=== PATIENT | female | born 1945 | race Caucasian/White ===

== ENCOUNTER 2016-11-08 09:30 | Outpatient (CLI) | payer MEDICARE, OTHER | END 2016-11-08 09:31 | disposition home or self-care (01) | DX: G47.33 Obstructive sleep apnea (adult) (pediatric) (principal) | CPT/HCPCS: 99214; G0463 ==

== ENCOUNTER 2016-11-12 10:15 | Outpatient (CLI) | payer MEDICARE, OTHER | END 2016-11-12 10:16 | disposition home or self-care (01) | DX: I10 Essential (primary) hypertension (principal); G25.81 Restless legs syndrome; R73.01 Impaired fasting glucose; Z78.9 Other specified health status; M25.50 Pain in unspecified joint ==

== ENCOUNTER 2016-11-15 11:13 | Outpatient (CLI) | payer MEDICARE, OTHER | END 2016-11-15 11:14 | disposition home or self-care (01) | DX: Z12.31 Encounter for screening mammogram for malignant neoplasm of breast (principal) ==

== ENCOUNTER 2016-11-26 10:55 | Outpatient (CLI) | payer MEDICARE, OTHER | END 2016-11-26 10:56 | disposition home or self-care (01) | DX: Z12.2 Encounter for screening for malignant neoplasm of respiratory organs (principal); Z87.891 Personal history of nicotine dependence; J43.9 Emphysema, unspecified; J84.10 Pulmonary fibrosis, unspecified ==

== ENCOUNTER 2016-12-17 10:32 | Outpatient (CLI) | payer MEDICARE, OTHER | END 2016-12-17 10:33 | disposition home or self-care (01) | DX: G47.33 Obstructive sleep apnea (adult) (pediatric) (principal) | CPT/HCPCS: 99214; G0463 ==

== ENCOUNTER 2017-02-18 09:30 | Outpatient (CLI) | payer MEDICARE, OTHER | END 2017-02-18 09:31 | disposition home or self-care (01) | DX: G47.33 Obstructive sleep apnea (adult) (pediatric) (principal) | CPT/HCPCS: 99214; G0463 ==

== ENCOUNTER 2017-04-22 10:06 | Outpatient (CLI) | payer MEDICARE, OTHER | END 2017-04-22 10:07 | disposition home or self-care (01) | LOC: SC 10:06 | PROVIDERS: ATTEND Nurse Practitioner Family | DX: G47.33 Obstructive sleep apnea (adult) (pediatric) (principal) | CPT/HCPCS: 99214; G0463; 99212 ==

== ENCOUNTER 2017-12-31 10:21 | Outpatient (CLI) | payer MEDICARE, OTHER ==
--- NOTE | 2018-01-01 14:26 | Mammography Report ---
DIGITAL SCREENING MAMMOGRAM: 12/31/2017 CLINICAL INDICATION: A 72-year-old, for screening. COMPARISON: 10/2016, 09/2015, 04/2014, 12/2012, 11/2011. TECHNIQUE: Routine CC and MLO projections as well as bilateral laterally-exaggerated craniocaudal views were obtained of the breasts. FINDINGS: Parenchymal tissue within the breasts is predominantly fatty replaced. There are no dominant masses, suspicious microcalcifications, or secondary signs of malignancy. In comparison to the previous studies, there are no significant changes. IMPRESSION: NO MAMMOGRAPHIC EVIDENCE OF MALIGNANCY. NO SIGNIFICANT INTERVAL CHANGES. RECOMMENDATION: Screening mammography is recommended annually. BIRADS category 1 - negative. STANDARD QUALIFYING STATEMENTS: 1. This examination was reviewed with the aid of Computed-Aided Detection (CAD). 2. A negative or benign imaging report should not delay biopsy if clinically suspicious findings are present. Consider surgical consultation if warranted. More than 5% of cancers are not identified by imaging. 3. Dense breasts may obscure an underlying neoplasm. TD: 01/01/2018 14:25
== END 2017-12-31 10:22 | disposition home or self-care (01) ==
LOC: DI.N 10:21
PROVIDERS: ATTEND Family Medicine
DX: Z12.31 Encounter for screening mammogram for malignant neoplasm of breast (principal)
CPT/HCPCS: 77067

== ENCOUNTER 2018-01-01 10:11 | Outpatient (CLI) | payer MEDICARE, OTHER | END 2018-01-01 10:12 | disposition home or self-care (01) | LOC: SC 10:11 | PROVIDERS: ATTEND Nurse Practitioner Family | DX: G47.33 Obstructive sleep apnea (adult) (pediatric) (principal); R03.0 Elevated blood-pressure reading, without diagnosis of hypertension | CPT/HCPCS: 99214; G0463; 99212 ==

== ENCOUNTER 2018-01-13 15:30 | Outpatient (CLI) | payer MEDICARE, OTHER ==
[2018-01-13 18:48] LABS: BILIRUBIN,URINE NEGATIVE (NEGATIVE); GLUCOSE, URINE (UA) NEGATIVE (NEGATIVE); KETONES,URINE (UA) NEGATIVE (NEGATIVE); LEUKOCYTE ESTERASE, URINE NEGATIVE (NEGATIVE); NITRITE,URINE NEGATIVE (NEGATIVE); OCCULT BLOOD,URINE NEGATIVE (NEGATIVE); PROTEIN,URINE NEGATIVE (NEGATIVE); UROBILINOGEN,URINE 0.2 (NORMAL) E.U./dL (NORMAL)
[2018-01-13 18:49] LABS: BASOPHILS # (AUTO) 0.1 10^3/uL (0.0-0.1); BASOPHILS % (AUTO) 1.1 %; EOSINOPHILS # (AUTO) 0.1 10^3/uL (0.0-0.7); EOSINOPHILS % (AUTO) 1.3 %; HGB - HEMOGLOBIN 14.7 g/dL (12.0-16.0); LYMPHOCYTES # (AUTO) 2.1 10^3/uL (1.5-3.5); LYMPHOCYTES % (AUTO) 25.4 %; MEAN CORPUSCULAR HEMOGLOBIN 31.2 pg (27.0-31.0); MEAN CORPUSCULAR VOLUME 94.7 fL (81.0-99.0); MEAN PLATELET VOLUME 8.5 fL (7.9-10.8); MONOCYTES # (AUTO) 0.9 10^3/uL (0.0-1.0); MONOCYTES % (AUTO) 10.5 %; NEUTROPHILS # (AUTO) 5.2 10^3/uL (1.5-6.6); NEUTROPHILS % (AUTO) 61.7 %; PLT - PLATELET COUNT 212 10^3/uL (130-450); RED BLOOD COUNT 4.71 10^6/uL (4.20-5.40); RED CELL DISTRIBUTION WIDTH 14.8 % (12.0-15.0); WHITE BLOOD COUNT 8.4 x10^3/uL (4.8-10.8)
[2018-01-13 19:01] LABS: BACTERIA,URINE None Seen /HPF (None Seen); CLARITY,URINE CLEAR (CLEAR); RBC,URINE None Seen /HPF (0-5); SQUAMOUS EPITHELIAL CELL,UR NONE SEEN (<= Few)
[2018-01-13 19:16] LABS: ALBUMIN 4.2 g/dL (3.2-5.5); ALBUMIN/GLOBULIN RATIO 1.4 (1.0-2.2); ALKALINE PHOSPHATASE 59 IU/L (42-121); ALT ALANINE AMINOTRANSFERASE 18 IU/L (10-60); AST ASPARTATE AMINOTRANSFERASE 22 IU/L (10-42); BILIRUBIN,TOTAL 0.6 mg/dL (0.2-1.0); BUN - BLOOD UREA NITROGEN 15 mg/dL (6-20); CARBON DIOXIDE - CO2 29 mmol/L (21-32); CHLORIDE 92 mmol/L (101-111); CHOL/HDL RATIO 4.4 (<4.4); CHOLESTEROL 190 mg/dL; CREATININE 0.8 mg/dL (0.4-1.0); GFR - MDRD 71 (>89); GLUCOSE 95 mg/dL (70-100); HDL CHOLESTEROL 43 mg/dL; LDL CHOLESTEROL,CALCULATED 111 mg/dL; LDL/HDL RATIO 2.6 (<4.4); SODIUM 131 mmol/L (135-145); TOTAL PROTEIN 7.3 g/dL (6.7-8.2); VLDL CHOLESTEROL 36 mg/dL
[2018-01-13 19:28] LABS: HB2 TOTAL 15.7 g/dL; HEMOGLOBIN A1C 0.64 g/dL; HEMOGLOBIN A1C % 5.9 % (4.6-6.2)
== END 2018-01-13 15:31 ==
LOC: LAB.WCP 15:30
PROVIDERS: ATTEND Family Medicine
DX: I10 Essential (primary) hypertension (principal); R73.01 Impaired fasting glucose; R31.9 Hematuria, unspecified
CPT/HCPCS: 36415; 80053; 80061; 81001; 83036; 83721; 85025

== ENCOUNTER 2018-06-11 20:09 | Outpatient (CLI) | payer MEDICARE, OTHER ==
--- NOTE | 2018-06-12 08:51 | Ultrasound Report ---
Procedure Date: 06/11/2018 Accession Number: [id number] / [id number] Procedure: US - Ext Limited Non Vascular CPT Code: FULL RESULT: EXAM: LEFT UPPER EXTREMITY ULTRASOUND - LIMITED EXAM DATE: 06/11/2018 08:59 PM. CLINICAL HISTORY: Lipoma. COMPARISON: None. TECHNIQUE: Real-time scanning was performed with static images obtained. FINDINGS: Amanda scale and limited color Doppler ultrasound of a palpable lump along the left forearm reveal a wider than tall, relatively well demarcated, heterogeneous hypoechoic mass which appears sessile on the underlying muscular fascia and otherwise respecting of tissue planes. Color Doppler suggests internal vascularity. IMPRESSION: Indeterminate mass with a broad differential. Despite suggestion of vascularity, this appearance could represent a hematoma or benign growth. While a lipoma is not excluded, the sonographic appearance is atypical. The appearance is not suggestive of a lymph node with normal architecture or an abscess. Clinical history of trauma, physical examination of a rubbery mobile mass or findings of infection would be helpful. [facility]
== END 2018-06-11 20:10 | disposition home or self-care (01) ==
LOC: DI 20:09
PROVIDERS: ATTEND Family Medicine
DX: D17.9 Benign lipomatous neoplasm, unspecified (principal)
CPT/HCPCS: 76882

== ENCOUNTER 2018-10-13 04:01 | Outpatient (CLI) | payer MEDICARE, OTHER | END 2018-10-13 04:02 | disposition E | LOC: EMS 04:01 | PROVIDERS: ATTEND Surgery ==